=== PATIENT | male | born 1990 | race Caucasian/White ===

== ENCOUNTER 2025-01-28 01:06 | Emergency (ER) | payer OTHER ==
[~2025-01-28] VITALS: Ht 160 cm; Wt 64.0 kg
[2025-01-28 01:17] VITALS: TEMP 37.2; O2SAT 97
[2025-01-28] MEDS ORDERED: IBUP-1455 MT (01:24)
[2025-01-28] MEDS ORDERED: IBUPROFEN 600MG TABLET ONE (02:20)
[2025-01-28 02:28] VITALS: BP 142/83; PULSE 104; RESP 16
[2025-01-28] MEDS: IBUPROFEN 600MG TABLET PO SCH (02:28)
== END 2025-01-28 02:25 ==
LOC: ER 01:06
DX: M79.644 Pain in right finger(s) (principal)
CPT/HCPCS: 73130; 99283